=== PATIENT | female | born 1985 | race Hispanic/Latino ===

== ENCOUNTER 2019-04-03 05:11 | Inpatient (IN) | payer OTHER ==
[2019-04-03] MEDS ORDERED: LACTATED RINGERS 500 ML IV ONE (05:49)
[2019-04-03] MEDS ORDERED: CELESTONE SOLUSPAN IM SCH (06:00)
[2019-04-03 06:02] LABS: Bacteria,Urine 1+ /HPF (Negative); Bilirubin,Urine NEG (Negative); Blood,Urine NEG (Negative); Color,Urine Yellow (Yellow); Mucus,Urine FEW /HPF; Protein,Urine <15 mg/dL mg/dL (Negative); Urobilinogen,Urine < 2.0 mg/dL (<2.0)
[2019-04-03] MEDS ORDERED: MAGNESIUM SULFATE 4GM/100ML 4 GM/100 ML BAG IV ONE ×3 (06:05→06:09)
[2019-04-03] MEDS ORDERED: MAGNESIUM SULFATE 40GM/1000ML 40 GM/1,000 ML BAG IV SCH ×2 (07:00)
[2019-04-03] MEDS ORDERED: CLEOCIN 900 MG/50 mL 900 MG/50 ML BAG IV SCH (07:00)
--- NOTE | 2019-04-03 07:08 | Ultrasound Report ---
US OB limited INDICATION / CLINICAL INFORMATION: R/O ABRUPTION AND OBTAIN CELESTE. COMPARISON: None available. FINDINGS: Viable single intrauterine gestation with heart rate 155 bpm. The CELESTE is normal, 15. The posterior placenta is free of the os. Note No evidence of abruption IMPRESSION: 1. Normal amniotic fluid volume. 2. No evidence of placental abruption. Signer Name: Manpreet Rider MD Signed: 04/03/2019 7:04 AM Workstation Name: [employer]
[2019-04-03 07:35] LABS: Hematocrit 38.5 % (30.3-42.9); Hemoglobin 12.8 gm/dl (10.1-14.3); Mean Corpuscular HGB Conc 33 % (30-34); Mean Corpuscular Volume 89 fl (79-97); Platelet Count 248 K/mm3 (140-440); Red Blood Count 4.34 M/mm3 (3.65-5.03); Red Cell Distribution Width 15.8 % (13.2-15.2)
[2019-04-03 07:36] LABS: Amphetamine Screen,Urine PRESUMPTIVE NEGATIVE; Benzodiazepines Screen,Urine PRESUMPTIVE NEGATIVE; Cannabinoid Screen,Urine PRESUMPTIVE NEGATIVE; Cocaine Screen,Urine PRESUMPTIVE NEGATIVE; Methadone Screen,Urine PRESUMPTIVE NEGATIVE; Opiate Screen,Urine PRESUMPTIVE NEGATIVE
[2019-04-03 07:52] LABS: Alanine Aminotransferase 12 units/L (7-56); Albumin 3.6 g/dL (3.9-5); BUN/Creatinine Ratio 15; Blood Urea Nitrogen 9 mg/dL (7-17); Calcium 9.1 mg/dL (8.4-10.2); Hemolysis Index 4
[2019-04-03] MEDS ORDERED: PITOCin/NS 20 UNIT/1000ML DRIP 20,000 MILLIUNITS/1,000 ML BAG IV ONE ×2 (12:38→13:55)
--- NOTE | 2019-04-03 13:22 | History and Physical Report ---
History of Present Illness Date of examination: 04/03/19 Date of admission: 04/03/19 06:00 Chief complaint: Contractions at 25+5 WKS. History of present illness: 34 YR OLD . x2 term vaginal deliveries. Was started on progesterone about 6weeks ago by provider in [place] before moving to [place]: reason was cervical dilatation then. She also had an ectopic and spontaneous miscarriage prior. Past History Past Medical History: asthma Past Surgical History: no surgical history Social history: - Obstetrical History Expected Date of Delivery: 07/12/19 Actual Gestation: 25 Week(s) 5 Day(s) : 5 Para: 2 Medications and Allergies Allergies Allergy/AdvReac Type Severity Reaction Status Date / Time Penicillins Allergy Swelling Verified 04/03/19 05:48 Home Medications Medication Instructions Recorded Confirmed Last Taken Type Vitamin 1 tab PO QDAY 04/03/19 04/03/19 04/02/19 History 0900 Progesterone 200 mg VG QHS 04/03/19 04/03/19 04/02/19 History 2100 Active Meds: Active Medications Betamethasone Acet/Betameth SodPhos (Celestone Soluspan) 12 mg IM Q24H ALON Stop: 04/04/19 06:01 Last Admin: 04/03/19 06:18 Dose: 12 mg Documented by: Magnesium Sulfate (Magnesium Sulfate 40gm/1000ml) 40 gm in 1,000 mls @ 25 mls/hr IV DIRECT ALON Last Admin: 04/03/19 07:02 Dose: 1 gm/hr, 25 mls/hr Documented by: Clindamycin HCl (Cleocin 900 Mg/50 Ml) 900 mg in 50 mls @ 100 mls/hr IV Q8HR ALON; Protocol Last Admin: 04/03/19 06:49 Dose: 100 mls/hr Documented by: Review of Systems All systems: negative - Vital Signs Vital signs: Vital Signs Pulse BP 86 111/62 04/03/19 05:31 04/03/19 05:31 Temp Pulse Resp BP Pulse Ox 98.9 F 98 H 123/59 97 04/03/19 06:25 04/03/19 13:12 04/03/19 12:59 04/03/19 13:12 - Physical Exam Breasts: Positive: deferred Lungs: Positive: Normal air movement Abdomen: Positive: normal appearance, soft, distention. Negative: tenderness, guarding Genitourinary (Female): Positive: normal external genitalia Vulva: both: normal Vagina: Negative: discharge, ulceration Cervix: Negative: lesion Uterus: Positive: enlarged (consistent with gestational age.), normal contour - Obstetrical FHR: auscultation normal Cervical Dilatation: 10 Uterine Contraction Pattern: Regular Results Result Diagrams: 04/03/19 06:32 04/03/19 06:32 Abnormal lab results 04/03/19 04/03/19 04/03/19 Range/Units 05:51 06:32 06:32 WBC 16.0 H (4.5-11.0) K/mm3 RDW 15.8 H (13.2-15.2) % Carbon Dioxide 20 L (22-30) mmol/L Creatinine 0.6 L (0.7-1.2) mg/dL Albumin 3.6 L (3.9-5) g/dL Urine WBC (Auto) 9.0 H (0.0-6.0) /HPF All other labs normal. Assessment and Plan - Patient Problems (1) 25 to 26 weeks gestation of Current Visit: Yes Status: Acute (2) labor in second trimester Current Visit: Yes Status: Acute Qualifiers: labor delivery status: with delivery in second trimester Fetus number: single or unspecified fetus Qualified Code(s): O60.12X0 - labor second trimester with delivery second trimester, not applicable or unspecified Plan to address problem: Patient was admitted and started on Clindamycin, celestone, MgSO4. Urine cultures, urine drug screen, cbc, cmp, ob US were done. NICU was informed. At 1250 HRS I spoke with MFM specialist MD Efe with status of patient and of imminent delivery and sought advise on route of delivery. Dr. Wilks reaasured me it was ok to proceed with vaginal delivery.
--- NOTE | 2019-04-03 13:42 | Procedure Note ---
OB Delivery Note - Delivery Date of Delivery: 04/03/19 Surgeon: KAUR PAULINO Estimated blood loss: 300cc - Vaginal Intrapartum events: labor-<37 weeks Delivery induction: none Delivery monitor: external FHT, external uterine Route of delivery: Delivery placenta: spontaneous - A Gender: Male ( scores by [employer] was pending at this time.)
[2019-04-03] MEDS ORDERED: DULCOLAX PR PRN (15:01)
[2019-04-03] MEDS ORDERED: TUCKS PAD TP PRN (15:01)
[2019-04-03] MEDS ORDERED: SODIUM CHLORIDE FLUSH SYRINGE 10 ML IV NR (15:01)
[2019-04-03] MEDS ORDERED: PHENERGAN PO PRN (15:01)
[2019-04-03] MEDS ORDERED: TYLENOL PO PRN (15:01)
[2019-04-03] MEDS ORDERED: PITOCin/NS 20 UNIT/1000ML DRIP 20 UNITS/1,000 ML BAG IV SCH (15:01)
[2019-04-03] MEDS ORDERED: PHENERGAN PR PRN (15:01)
[2019-04-03] MEDS ORDERED: ZOFRAN IV PRN (15:01)
[2019-04-03] MEDS ORDERED: BENADRYL PO PRN (15:01)
[2019-04-03] MEDS ORDERED: LANSINOH TP PRN (15:01)
[2019-04-03] MEDS ORDERED: NORCO 5/325 PO PRN (15:01)
[2019-04-03] MEDS: IBUPROFEN PO SCH ×2 (15:26→21:00)
--- NOTE | 2019-04-03 16:43 | Consultation ---
Consult Note - Parent Education I met with parent(s) and discussed the following:: Need for NICU admission, Poss ible need for intubation and surfactant or other resp support, Temperature regulation, Head ultrasounds to evaluate IVH, Possible need for IV fluids/TPN and IV antibiotics, Possible need for umbilical lines, Importance of providing breast milk & encouraged pumping aft delivery, Donor breast milk if baby meets criteria after , Slow feeding advancement and monitoring of tolerance. NG/OG feeds, Data for survival & survival without significant co-morbidities Parent(s) demonstrated understanding of all the information:: Yes Additional Comment: 25 week, 5 days in labor Assessment and Plan - Assessment Gestation:: 25 (25 weeks, 5 days) Baby's gender: Male Additional Comment: Consult completed a few minutes prior to delivery. NICU team present in delivery room - Plan Plan: Agree with Mag & steroids Will attend delivery Please call NICU with questions
[2019-04-04] MEDS: IBUPROFEN PO SCH ×2 (03:00→12:59)
[2019-04-04 07:01] LABS: Hemoglobin 12.1 gm/dl (10.1-14.3)
[2019-04-04] MEDS ORDERED: PRENATAL VITAMIN PO SCH (10:00)
--- NOTE | 2019-04-04 10:32 | Progress Note ---
Assessment and Plan - Patient Problems (1) delivery without spontaneous labor Current Visit: Yes Status: Acute Qualifiers: Fetus number: single or unspecified fetus Qualified Code(s): O60.10X0 - labor with delivery, unspecified trimester, not applicable or unspecified Plan to address problem: Continue routine PP orders Anticipate d/c home tomorrow Subjective - Subjective Date of service: 04/04/19 Principal diagnosis: NVSD Interval history: See admission H & P; OB delivery summary and PP progress notes Patient reports: appetite normal, voiding normally, pain well controlled, flatus, ambulating normally, no bowel movement : in NICU Objective - Vital Signs Latest vital signs: Vital Signs Temp Pulse Resp BP BP Pulse Ox 04/04/19 07:40 98.2 F 71 18 85/45 04/04/19 04:00 98.8 F 72 18 111/74 04/04/19 00:00 98.8 F 77 16 107/60 04/03/19 14:45 97.6 F 90 12 98/74 98 04/03/19 13:12 98 H 97 04/03/19 13:07 106 H 97 04/03/19 13:02 90 98 04/03/19 13:00 97.6 F 04/03/19 12:59 101 H 123/59 04/03/19 12:57 97 H 97 04/03/19 12:52 100 H 100 04/03/19 12:47 114 H 100 04/03/19 12:42 109 H 100 04/03/19 12:37 103 H 100 04/03/19 12:36 103 H 120/65 04/03/19 12:32 104 H 100 04/03/19 12:27 103 H 99 04/03/19 12:22 100 H 100 04/03/19 12:19 52 L 91 04/03/19 12:17 103 H 100 04/03/19 12:12 102 H 100 04/03/19 12:07 104 H 100 04/03/19 12:02 104 H 100 04/03/19 11:57 107 H 100 04/03/19 11:52 109 H 100 04/03/19 11:47 108 H 100 04/03/19 11:36 105 H 113/60 Intake and Output 10/14/19 10/15/19 10/15/19 23:59 07:59 15:59 Intake Total 540 1080 Output Total 1700 Balance -1160 1080 Intake: Oral 240 480 Intake, Free Water 300 600 Output: Urine 1700 Void 1700 Other: Total, Intake Amount 240 480 Total, Output Amount 600 # Voids Void 1 1 - Exam Breasts: Present: normal Cardiovascular: Present: Regular rate Lungs: Present: Normal air movement Abdomen: Present: soft Uterus: Present: firm, fundal height at umbilicus Extremities: Present: normal Deep Tendon Reflex Grade: Normal +2 - Labs Labs: Abnormal lab results 04/03/19 04/03/19 Range/Units 13:37 15:06 POC ABG pH 7.251 L (7.35-7.45) Magnesium 3.50 H (1.7-2.3) mg/dL
--- NOTE | 2019-04-04 10:34 | Discharge Summary ---
Providers - Providers Date of Admission: 04/03/19 06:00 Date of discharge: 04/05/19 (1200) Attending physician: KAUR PAULINO MD Primary care physician: KAUR PAULINO MD Hospitalization Reason for admission: labor Delivery: Episiotomy: none Laceration: none complications: none Discharge diagnosis: delivery (Spontaneous) [place] baby: male Condition at discharge: Good Disposition: DC-01 TO HOME OR SELFCARE - Discharge Diagnoses (1) delivery without spontaneous labor Status: Acute Qualifiers: Fetus number: single or unspecified fetus Qualified Code(s): O60.10X0 - labor with delivery, unspecified trimester, not applicable or unspecified Plan - Provider Discharge Summary Activity: routine, no sex for 6 weeks, no heavy lifting 4 weeks, no strenuous exercise Diet: routine Instructions: routine Additional instructions: [] Smoking cessation referral if applicable(refer to patient education folder for contact #) [] Refer to [facility] Booklet Call your doctor immediately for: * Fever > 100.5 * Heavy vaginal bleeding ( >1 pad per hour) * Severe persistent headache * Shortness of breath * Reddened, hot, painful area to leg or breast * Drainage or odor from incision. - Follow up plan Follow up: KAUR PAULINO MD [Primary Care Provider] - 6 Weeks
[2019-04-04] MEDS: PRENATAL VITAMIN PO SCH (10:43)
[2019-04-05] MEDS: IBUPROFEN PO SCH (00:31)
[2019-04-05] MEDS: PRENATAL VITAMIN PO SCH (10:44)
[2019-04-05 11:55] LABS: HIV-1 Antibody Differentiation SEE SCANNED RESULT; HIV-2 Antibody Differentiation SEE SCANNED RESULT
[2019-04-05 15:18] VITALS: BP 110/66
== END 2019-04-05 15:00 | disposition home or self-care (01) | DRG 807 ==
LOC: TRG 05:11 → LD 06:00 → OB 14:59
PROVIDERS: ADMIT Obstetrics & Gynecology; ATTEND Obstetrics & Gynecology
PROC: 10E0XZZ Delivery of Products of Conception, External Approach (ICD-10-PCS; principal; 2019-04-03)
PROC: 4A033R1 Measurement of Arterial Saturation, Peripheral, Percutaneous Approach (ICD-10-PCS; 2019-04-03)
DX: O60.12X0 Preterm labor second trimester with preterm delivery second trimester, not applicable or unspecified (principal); Z37.0 Single live birth; O99.52 Diseases of the respiratory system complicating childbirth; J45.909 Unspecified asthma, uncomplicated; Z3A.25 25 weeks gestation of pregnancy; Z88.0 Allergy status to penicillin; Z79.899 Other long term (current) drug therapy
CPT/HCPCS: 36415; 76815; 80053; 80307; 81001; 82803; 83735; 85014; 85018; 85027; 86592; 86689; 86706; 86762; 86850; 86900; 86901; 87086; 87116; 88305; G0378; J0702; J2590; J3246; J3475; J7120